=== PATIENT | female | born 1990 ===

== ENCOUNTER 2018-11-18 01:04 | Emergency (ER) | payer OTHER ==
[2017-11-21 10:54] VITALS: BMI 28.8
--- NOTE | 2018-11-18 11:16 | RAD ---
Date of service: 11/18/2018 HISTORY: MD ORDER COMPARISON: No prior. TECHNIQUE: Chest PA and lateral FINDINGS: LUNGS: No active pulmonary disease. PLEURA: No significant pleural effusion identified. No pneumothorax apparent. CARDIOVASCULAR: No aortic atherosclero borderline enlarged. Tic calcification present. Heart size upper limits of normal/no pulmonary vascular congestion. OSSEOUS STRUCTURES: No significant abnormalities. VISUALIZED UPPER ABDOMEN: Normal. OTHER FINDINGS: None. IMPRESSION: No active disease.
== END 2018-11-18 04:43 | disposition home or self-care (01) ==
LOC: H.ER 01:04
DX: F41.9 Anxiety disorder, unspecified (principal)